=== PATIENT | female | born 1960 | race Caucasian/White ===

== ENCOUNTER 2017-02-26 05:36 | Inpatient (IN) | payer BC ==
[~2017-02-26] VITALS: Ht 165.1 cm; Wt 117.0 kg
--- NOTE | ~2017-02-26 | OR ---
ADMIT: 02/26/2017 RM/LOC: 619 [facility] MR#: [id number] [address] [id number] [address] [place] [address] Operative/Delivery Room Report SEX: F AGE: 56 : 1960 SURGERY DATE: 02/26/2017 SURGEON: Gulshan Acosta MD PREOPERATIVE DIAGNOSES: 1. Hypersplenism. 2. Thrombocytopenia. POSTOPERATIVE DIAGNOSES: 1. Hypersplenism. 2. Thrombocytopenia. 3. Splenomegaly. PROCEDURE PERFORMED: Laparoscopic, converted to open splenectomy. RETORT SETTER: Augusto Everett MD ANESTHESIA: General endotracheal. ESTIMATED BLOOD LOSS: Approximately 2000 mL. DESCRIPTION OF PROCEDURE: After appropriate informed consent was obtained, the patient was brought to the operating room. General endotracheal anesthesia was induced. The patient was positioned with her left side up held in place with a aguirre bag. She was positioned about a 45 degrees angle. A left upper quadrant incision was created. Veress needle introduced and the abdomen insufflated with CO2. This was after the abdomen was prepped and draped in a sterile fashion. A 5 mm trocar was then placed. Camera was introduced and the abdomen surveyed. She did have some adhesions of the omentum up to the abdominal wall, these appeared to be pretty inflamed adhesions with quite a significant vascularity but the kind of out of our way. So, I did not have to take any of them down. Three additional ports were placed in the upper abdomen, left upper quadrant. The omentum was peeled away from the spleen. The stomach was mobilized free from the spleen also with using Harmonic Scalpel. The splenic flexure of the colon was down and away, so I did not really need to do anything with that. I started dissecting along the hilum of the spleen, trying to get the vessels dissected out. There was a small vessel going to the inferior pole of the spleen that I was able to isolate first and I divided that with an Endo-RAMÓN stapler. I then started working on the main vessels of the hilum and in doing so, pretty early on in the dissection, I ended up getting a small venous branch bleeding and it bled very briskly. I was able to grasp onto it with the 5 mm forceps and control it. We got things suctioned out. I attempted to use a 5 mm clip general handling supervisor to control any bleeding there, which slowed it down, but ultimately it was still bleeding too briskly and I was not comfortable I was going to get it under control. We had already lost enough blood at that point that I felt we needed to convert to open. So a left upper quadrant incision was quickly made. The abdomen was opened. I was able to get a hand in and just put my fingers around the hilum of the spleen to control any bleeding there. I was then able ADMIT: 02/26/2017 RM/LOC: 619 [facility] MR#: [id number] [address] [place] [id number] [address] [place] [id number] Operative/Delivery Room Report SEX: F AGE: 56 : 1960 to get a curved Pean clamp across the hilum and clamp that and control any further bleeding. At this point, I took some time to wash out the left upper quadrant. I then used the Harmonic Scalpel to finish taking down the short gastric vessels from the upper pole of the spleen as well as mobilized all the lateral and posterior attachments of the spleen, so I could bring the spleen and its blood vessels up and out through the left upper quadrant wound. The hilum was freed off, so we just had the vessels left in place to go across. I used, I think 3 firings of the laparoscopic Endo-RAMÓN stapler with vascular loads to get across the hilum. I took care to avoid any injury to the tail of the pancreas and firing across the hilum. With the spleen freed up, it was handed off and sent to pathology. It was a very large spleen. The left upper quadrant was then copiously irrigated out with warm saline. The pedicle appeared intact and hemostatic. There was no bleeding from the staple lines. Stomach, colon, and pancreas all appeared to be intact. Once I was satisfied with hemostasis, all sponge and instrument counts were correct, the fascia was then reapproximated in 2 layers using looped #1 PDS sutures, one posterior layer and one anterior layer of closure. The subcutaneous tissues then copiously irrigated out with warm saline and skin closed with skin ofelia. Sterile dressings were then applied. Dr. Everett assisted in this entire procedure. His help was necessary for retraction, especially during the open part of this procedure. Gulshan Acosta MD/ solomon JOB #: [id number] CC: Gulshan Acosta, Attending Physician Alton Mena, Family Physician Jael Segal MD
[2017-03-03] MEDS ORDERED: LASIX DPS40 MG PO (13:13)
[2017-03-03] MEDS ORDERED: SERTRALINE HCL100 MG PO (13:14)
[2017-03-03] MEDS ORDERED: LEVOTHYROXINE137 MCG PO (13:14)
[2017-03-03] MEDS ORDERED: GLIPIZIDE XL10 MG PO (13:14)
[2017-03-03] MEDS ORDERED: ULTRAM DPS50 MG PO (13:15)
[2017-03-03] MEDS ORDERED: METHOTREXA25 MG/1 M4 SQ (13:15)
[2017-03-03] MEDS ORDERED: FOLIC ACID0.4 MG PO (13:16)
[2017-03-03] MEDS ORDERED: NABUMETONE750 MG PO (13:16)
[2017-03-03] MEDS ORDERED: KLOR-CON M2020 ME1 PO (13:17)
[2017-03-03] MEDS ORDERED: PRILOSEC DPS20 MG PO (13:17)
[2017-03-03] MEDS ORDERED: HYDROCHLOROTHIA25 MG PO (13:17)
[2017-03-03] MEDS ORDERED: METFORMIN HCL500 M2 PO (13:17)
[2017-03-03] MEDS ORDERED: CALCIUM 600 +1 EA12 PO (13:18)
[2017-03-03] MEDS ORDERED: CRANBERRY250 MG PO (13:18)
== END 2017-03-02 11:35 | disposition home or self-care (01) | DRG 801 ==
LOC: 6PED 05:36 → WOR 05:36 → 6PED 10:29
PROVIDERS: ADMIT Surgery
PROC: 07TP0ZZ Resection of Spleen, Open Approach (ICD-10-PCS; principal; 2017-02-26)
PROC: 30233N1 Transfusion of Nonautologous Red Blood Cells into Peripheral Vein, Percutaneous Approach (ICD-10-PCS; 2017-03-01)
DX: D73.1 Hypersplenism (principal); D69.6 Thrombocytopenia, unspecified; Z53.31 Laparoscopic surgical procedure converted to open procedure